=== PATIENT | female | born 1940 | race Caucasian/White ===

== ENCOUNTER 2019-09-02 04:44 | Inpatient (IN) ==
[2019-09-02] MEDS ORDERED: SODIUM CHLORIDE 0.9% 1,000 ML IV STA (05:01)
[2019-09-02] MEDS ORDERED: ALUM/MAG/SIMETH/LIDO VISC 1:1 30 ML BOTTLE PO STA (05:18)
[2019-09-02 05:30] LABS: Basophils # 0.1 10*3/uL (0.0-0.2); Basophils % 0.4 % (0.0-0.8); Eosinophils # 0.1 10*3/uL (0.0-0.87); Eosinophils % 0.4 % (0.00-10.9); Hematocrit 37.6 VOL% (35.7-47.0); Hemoglobin 12.3 GM/DL (12.0-16.0); Immature Granulocytes % 0.5 %; Immature Granulocytes Absolute 0.06 #; Lymphocytes % 8.9 % (21.3-54.2); Mean Corpuscular HGB Conc 32.7 GM/DL (32-36); Mean Corpuscular Volume 85.3 FL (87-102); Mean Platelet Volume 11.3 FL (9.6-12.0); Monocytes % 4.2 % (1.7-12.7); Neutrophils % 85.6 % (38.7-73.9); Platelet Count 222 T/CUMM (130-400); Red Blood Count 4.41 MC/CUMM (3.8-5.5); Red Cell Distribution Width 12.7 % (9.3-17.3); White Blood Count 11.5 T/CUMM (4-12)
[2019-09-02] MEDS: ONDANSETRON 4 MG/2 ML VIAL IV PRN ×2 (05:40→20:36)
[2019-09-02 05:47] LABS: Bilirubin,Total 0.4 MG/DL (0.2-1.0); Calcium 9.5 MG/DL (8.5-10.1); Total Protein 7.3 G/DL (6.4-8.3)
[2019-09-02 06:17] LABS: Amorphous Crystals,Urine Occasional /HPF (Few); Apearance,Urine Slightly Hazy (Clear); Bilirubin,Urine Negative (Negative); Blood, Urine Negative (Negative); Glucose,Urine (UA) Negative (Negative); Ketones,Urine Negative (Negative); Nitrite,Urine Negative (Negative); Protein,Urine 30 MG/DL; RBC,Urine 2 /HPF (0-4); Squamous Epithelial Cell,Urine Occasional /HPF (0-10); Urine Color Yellow (Yellow); Urine Specific Gravity 1.013 (1.001-1.035); Urine Urobilinogen < 2.0 EU/DL (0.2-1.0)
[2019-09-02] MEDS ORDERED: METOCLOPRAMIDE 10 MG/2 ML VIAL IV STA (07:05)
[2019-09-02] MEDS ORDERED: ONDANSETRON 4 MG/2 ML VIAL IV STA (07:05)
[2019-09-02] MEDS ORDERED: MAGNESIUM SULF RIDER 4 GM in PREMIX 1 EACH IV PRN (12:49)
[2019-09-02] MEDS ORDERED: MAGNESIUM SULF RIDER 2 GM in PREMIX 1 EACH IV PRN (12:49)
[2019-09-02] MEDS ORDERED: hydrALAZINE 20 MG/1 ML VIAL IV PRN (12:50)
[2019-09-02] MEDS: SODIUM CHLORIDE 0.9% 1,000 ML IV SCH (14:13)
[2019-09-02] MEDS: ENOXAPARIN 40 MG/0.4 ML SYRINGE SUBCUT SCH (14:14)
[2019-09-02] MEDS: AMPICILLIN/SULBACTAM 3,000 MG in SODIUM CHLORIDE 0.9% 100 ML IV SCH ×2 (14:14→20:36)
[2019-09-03] MEDS: SODIUM CHLORIDE 0.9% 1,000 ML IV SCH ×3 (01:28→22:16)
[2019-09-03] MEDS: AMPICILLIN/SULBACTAM 3,000 MG in SODIUM CHLORIDE 0.9% 100 ML IV SCH ×2 (02:37→08:07)
[2019-09-03] MEDS: ONDANSETRON 4 MG/2 ML VIAL IV PRN ×2 (06:20→14:23)
[2019-09-03 06:25] LABS: Basophils % 0.6 % (0.0-0.8); Eosinophils % 0.4 % (0.00-10.9); Hematocrit 31.8 VOL% (35.7-47.0); Hemoglobin 10.1 GM/DL (12.0-16.0); Immature Granulocytes % 0.3 %; Immature Granulocytes Absolute 0.02 #; Lymphocytes # 1.9 10*3/uL (1.4-4.0); Lymphocytes % 26.7 % (21.3-54.2); Mean Corpuscular HGB Conc 31.8 GM/DL (32-36); Mean Corpuscular Volume 87.8 FL (87-102); Mean Platelet Volume 11.3 FL (9.6-12.0); Platelet Count 208 T/CUMM (130-400); Red Blood Count 3.62 MC/CUMM (3.8-5.5); White Blood Count 6.9 T/CUMM (4-12)
[2019-09-03 06:43] LABS: Bilirubin,Total 0.5 MG/DL (0.2-1.0); Calcium 8.3 MG/DL (8.5-10.1); Osmolality,Calculated 276.5 MOS/KG (273-304); Total Protein 5.9 G/DL (6.4-8.3)
[2019-09-03 07:39] LABS: Sedimentation Rate-Westergren 40 MM/HR (0-30)
[2019-09-03] MEDS: PANTOPRAZOLE 40 MG VIAL IV SCH (08:08)
[2019-09-03] MEDS ORDERED: MELATONIN 3 MG TABLET PO PRN (10:59)
[2019-09-03] MEDS ORDERED: HydrOXYzine PAMOATE 25 MG CAPSULE PO PRN (10:59)
[2019-09-03] MEDS ORDERED: SENNA 8.6 MG TABLET PO PRN (10:59)
[2019-09-03] MEDS: POTASSIUM CHLORIDE RIDER 20 MEQ in PREMIX 1 EACH IV SCH ×2 (14:23→16:25)
[2019-09-03] MEDS: ENOXAPARIN 40 MG/0.4 ML SYRINGE SUBCUT SCH (14:23)
[2019-09-03] MEDS ORDERED: CETIRIZINE 10 MG TABLET PO SCH (21:00)
[2019-09-04] MEDS: SODIUM CHLORIDE 0.9% 1,000 ML IV SCH (03:11)
[2019-09-04 03:53] LABS: Basophils % 0.5 % (0.0-0.8); Eosinophils # 0.2 10*3/uL (0.0-0.87); Eosinophils % 3.1 % (0.00-10.9); Hematocrit 30.3 VOL% (35.7-47.0); Hemoglobin 9.6 GM/DL (12.0-16.0); Immature Granulocytes % 0.5 %; Immature Granulocytes Absolute 0.03 #; Lymphocytes # 1.9 10*3/uL (1.4-4.0); Lymphocytes % 32.1 % (21.3-54.2); Mean Corpuscular HGB Conc 31.7 GM/DL (32-36); Mean Corpuscular Volume 88.1 FL (87-102); Mean Platelet Volume 10.8 FL (9.6-12.0); Monocytes % 10.2 % (1.7-12.7); Neutrophils % 53.6 % (38.7-73.9); Platelet Count 186 T/CUMM (130-400); Red Blood Count 3.44 MC/CUMM (3.8-5.5); Red Cell Distribution Width 13.1 % (9.3-17.3); White Blood Count 6.1 T/CUMM (4-12)
[2019-09-04 04:30] LABS: Albumin 2.8 G/DL (3.4-5.0); Bilirubin,Total 0.4 MG/DL (0.2-1.0); Calcium 8.1 MG/DL (8.5-10.1); Total Protein 5.6 G/DL (6.4-8.3)
[2019-09-04 05:05] LABS: Sedimentation Rate-Westergren 25 MM/HR (0-30)
[2019-09-04] MEDS ORDERED: [UNRECOGNIZED DRUG - OTHER] INH SCH (09:00)
[2019-09-04] MEDS ORDERED: MULTIVITAMIN (CENTRUM) TABLET PO SCH (09:00)
[2019-09-04] MEDS ORDERED: CHOLECALCIFEROL 5,000 UNIT TABLET PO SCH (09:00)
[2019-09-04] MEDS ORDERED: atenoloL 25 MG TABLET PO SCH (09:00)
[2019-09-04] MEDS ORDERED: ASPIRIN EC 81 MG TABLET PO SCH (09:00)
[2019-09-04] MEDS ORDERED: CYANOCOBALAMIN 500 MCG TABLET PO SCH (09:00)
[2019-09-04] MEDS ORDERED: FUROSEMIDE 20 MG/2 ML VIAL IV ONE (10:13)
[2019-09-04] MEDS: PANTOPRAZOLE 40 MG VIAL IV SCH (10:25)
[2019-09-04] MEDS ORDERED: NAPROXEN 250 MG TABLET PO PRN (13:14)
[2019-09-04] MEDS: ENOXAPARIN 40 MG/0.4 ML SYRINGE SUBCUT SCH (14:36)
[2019-09-04 14:47] VITALS: BP 117/60
== END 2019-09-04 16:10 | disposition home health service (06) | DRG 392 ==
LOC: EDBD → EDUNIT# → N.ED 04:44 → SUATTDRO 11:11 → N.EDINP 11:11 → N.2W 12:01
PROVIDERS: ADMIT Internal Medicine; ATTEND Internal Medicine

== ENCOUNTER 2020-06-16 17:10 | Inpatient (IN) ==
[2020-06-16] MEDS ORDERED: ONDANSETRON 4 MG/2 ML VIAL ONE (18:01)
[2020-06-16] MEDS ORDERED: ONDANSETRON 4 MG/2 ML VIAL IV STA (18:05)
[2020-06-16] MEDS ORDERED: SODIUM CHLORIDE 0.9% 1,000 ML IV STA (18:12)
[2020-06-16 18:20] LABS: Basophils # 0.1 10*3/uL (0.0-0.2); Basophils % 0.9 % (0.0-0.8); Eosinophils # 0.1 10*3/uL (0.0-0.87); Eosinophils % 0.8 % (0.00-10.9); Hematocrit 39.1 VOL% (35.7-47.0); Hemoglobin 12.3 GM/DL (12.0-16.0); Immature Granulocytes % 0.5 %; Immature Granulocytes Absolute 0.06 #; Lymphocytes # 1.2 10*3/uL (1.4-4.0); Mean Corpuscular HGB Conc 31.5 GM/DL (32-36); Mean Corpuscular Volume 92.4 FL (87-102); Mean Platelet Volume 10.9 FL (9.6-12.0); Monocytes % 7.6 % (1.7-12.7); Neutrophils % 79.2 % (38.7-73.9); Platelet Count 301 T/CUMM (130-400); Red Blood Count 4.23 MC/CUMM (3.8-5.5); Red Cell Distribution Width 13.8 % (9.3-17.3); White Blood Count 11.3 T/CUMM (4-12)
[2020-06-16 18:28] LABS: INR 1.2
[2020-06-16 18:29] LABS: Albumin 3.7 G/DL (3.4-5.0); Bilirubin,Total 0.6 MG/DL (0.2-1.0); Calcium 9.4 MG/DL (8.5-10.1); Osmolality,Calculated 277.4 MOS/KG (273-304); Potassium 4.1 MMOL/L (3.5-5.1); Total Protein 7.4 G/DL (6.4-8.3)
[2020-06-16 18:34] LABS: ABG Base Excess -0.8 MMOL/L (-2.5-2.5); ABG HCO3 23.6 MMOL/L (20-26); ABG PCO2 38.7 MM HG (35-48); ABG PH 7.397 (7.35-7.45); ABG PO2 60.2 MM HG (80-95); ABG TCO2 21.1 MMOL/L (23-27); Allen Test Positive; Pt O2 Delivery Device Room Air
[2020-06-16] MEDS ORDERED: methylPREDNISolone SOD SUC 125 MG/2 ML VIAL IV STA (19:03)
[2020-06-16 19:17] LABS: Bilirubin,Urine Negative (Negative); Blood, Urine Negative (Negative); Glucose,Urine (UA) Negative (Negative); Hyaline Casts,Urine 2 /LPF (0-3); Ketones,Urine 5 mg/dL (Negative); Mucus,Urine Occasional /LPF (Occasional); Nitrite,Urine Negative (Negative); Protein,Urine 100 MG/DL; Squamous Epithelial Cell,Urine Occasional /HPF (0-10); Urine Appearance CLEAR (Clear); Urine Color Yellow (Yellow); Urine Specific Gravity 1.024 (1.001-1.035); Urine Urobilinogen < 2.0 EU/DL (0.2-1.0); WBC,Urine 1 /HPF (0-6)
[2020-06-16 19:29] LABS: Ferritin 91.3 ng/ml (8-252)
[2020-06-16] MEDS ORDERED: PROMETHAZINE INJ 12.5 MG in SODIUM CHLORIDE 0.9% 50 ML IV STA (19:30)
[2020-06-16] MEDS ORDERED: FUROSEMIDE 40 MG/4 ML VIAL IV STA ×2 (19:51→22:15)
[2020-06-16] MEDS ORDERED: AZITHROMYCIN INJ 500 MG in SODIUM CHLORIDE 0.9% 250 ML IV STA (20:02)
[2020-06-16] MEDS ORDERED: ACETAMINOPHEN 325 MG TABLET PO PRN (20:12)
[2020-06-16] MEDS ORDERED: GLUCAGON 1 MG VIAL IM PRN (20:12)
[2020-06-16] MEDS ORDERED: SIMETHICONE CHEW 125 MG TABLET PO PRN (20:12)
[2020-06-16] MEDS ORDERED: DEXTROSE 50% 25 GM/50 ML VIAL IV PRN (20:12)
[2020-06-16] MEDS ORDERED: ZALEPLON 5 MG CAPSULE PO PRN (20:12)
[2020-06-16] MEDS ORDERED: hydrALAZINE 20 MG/1 ML VIAL IV PRN (20:12)
[2020-06-16] MEDS ORDERED: diphenhydrAMINE CAP 25 MG CAPSULE PO PRN (20:12)
[2020-06-16] MEDS ORDERED: NICOTINE 21 MG/24 HR PATCH TRANSDERM PRN (20:12)
[2020-06-16] MEDS ORDERED: ONDANSETRON 4 MG/2 ML VIAL IV PRN (20:12)
[2020-06-16] MEDS ORDERED: SENNA 8.6 MG TABLET PO PRN (20:16)
[2020-06-16] MEDS ORDERED: METOCLOPRAMIDE 10 MG/2 ML VIAL IV PRN (20:33)
[2020-06-16] MEDS ORDERED: ALBUTEROL INHALER 18 GM INH PRN (20:38)
[2020-06-16] MEDS: ENOXAPARIN 40 MG/0.4 ML SYRINGE SUBCUT SCH (21:22)
[2020-06-16] MEDS: CETIRIZINE 10 MG TABLET PO SCH (21:24)
[2020-06-16] MEDS: LEVOFLOXACIN INJ 750 MG in PREMIX 1 EACH IV SCH (22:51)
[2020-06-16] MEDS ORDERED: ALBUTEROL INHALER 18 GM INH SCH (23:00)
[2020-06-16] MEDS ORDERED: ALBUTEROL 1.25 MG/3 ML NEB RESP TX PRN (23:25)
[2020-06-17] MEDS: ALBUTEROL/IPRATROPIUM 3 ML NEB RESP TX SCH ×4 (00:54→19:08)
[2020-06-17] MEDS: PROMETHAZINE INJ 25 MG in SODIUM CHLORIDE 0.9% 50 ML IV PRN ×2 (04:40→16:44)
[2020-06-17 06:09] LABS: Basophils % 0.1 % (0.0-0.8); Hematocrit 35.8 VOL% (35.7-47.0); Hemoglobin 11.6 GM/DL (12.0-16.0); Immature Granulocytes % 0.6 %; Immature Granulocytes Absolute 0.04 #; Lymphocytes # 0.4 10*3/uL (1.4-4.0); Lymphocytes % 6.4 % (21.3-54.2); Mean Corpuscular HGB Conc 32.4 GM/DL (32-36); Mean Corpuscular Volume 91.3 FL (87-102); Mean Platelet Volume 11.3 FL (9.6-12.0); Monocytes % 1.4 % (1.7-12.7); Neutrophils % 91.5 % (38.7-73.9); Platelet Count 240 T/CUMM (130-400); Red Blood Count 3.92 MC/CUMM (3.8-5.5); Red Cell Distribution Width 13.8 % (9.3-17.3); White Blood Count 6.9 T/CUMM (4-12)
[2020-06-17 06:38] LABS: Albumin 3.3 G/DL (3.4-5.0); Bilirubin,Total 0.9 MG/DL (0.2-1.0); Calcium 8.2 MG/DL (8.5-10.1); Osmolality,Calculated 280.8 MOS/KG (273-304); Potassium 3.4 MMOL/L (3.5-5.1); Total Protein 6.8 G/DL (6.4-8.3)
[2020-06-17 07:49] LABS: Anisocytosis 1+; Lymphocytes 8 % (20-55); Macrocytosis Slight; Nucleated Red Blood Cells 1 (0-5); Platelet Estimate Normal; Segmented Neutrophils 91 % (50-85); Total Cells Counted 100
[2020-06-17] MEDS ORDERED: Fluticasone Furoate-Vilanterol [Breo Ellipta] 200-25 mcg/dose INH SCH (09:00)
[2020-06-17] MEDS: FUROSEMIDE 40 MG/4 ML VIAL IV SCH ×2 (10:49→16:45)
[2020-06-17] MEDS: CITALOPRAM 40 MG TABLET PO SCH (10:49)
[2020-06-17] MEDS: MULTIVITAMIN (CENTRUM) TABLET PO SCH (10:50)
[2020-06-17] MEDS: ASPIRIN EC 81 MG TABLET PO SCH (10:50)
[2020-06-17] MEDS: CHOLECALCIFEROL 5,000 UNIT TABLET PO SCH (10:50)
[2020-06-17] MEDS: PANTOPRAZOLE 40 MG TABLET PO SCH (10:50)
[2020-06-17] MEDS: atenoloL 25 MG TABLET PO SCH (12:32)
[2020-06-17] MEDS ORDERED: CLORAZEPATE 3.75 MG TABLET PO PRN (13:29)
[2020-06-17] MEDS ORDERED: POTASSIUM CHLORIDE 20 MEQ TABLET PO ONE (13:31)
[2020-06-17] MEDS: methylPREDNISolone SOD SUC 40 MG/1 ML VIAL IV SCH (16:45)
[2020-06-17] MEDS: ENOXAPARIN 40 MG/0.4 ML SYRINGE SUBCUT SCH (20:13)
[2020-06-17] MEDS: CETIRIZINE 10 MG TABLET PO SCH (20:13)
[2020-06-17] MEDS: LEVOFLOXACIN INJ 750 MG in PREMIX 1 EACH IV SCH (20:13)
[2020-06-17] MEDS: guaiFENesin/DM ER 600-30 MG TABLET PO PRN (20:13)
[2020-06-18] MEDS: ALBUTEROL/IPRATROPIUM 3 ML NEB RESP TX SCH ×3 (00:09→12:09)
[2020-06-18] MEDS: MELATONIN 3 MG TABLET PO PRN ×2 (00:18→22:04)
[2020-06-18] MEDS: methylPREDNISolone SOD SUC 40 MG/1 ML VIAL IV SCH ×2 (02:31→14:23)
[2020-06-18 04:01] LABS: ABG Base Excess 2.7 MMOL/L (-2.5-2.5); ABG HCO3 26.8 MMOL/L (20-26); ABG PCO2 40.3 MM HG (35-48); ABG PH 7.436 (7.35-7.45); ABG TCO2 24.5 MMOL/L (23-27); Allen Test Positive
[2020-06-18 05:34] LABS: Basophils % 0.1 % (0.0-0.8); Hematocrit 31.8 VOL% (35.7-47.0); Hemoglobin 10.1 GM/DL (12.0-16.0); Immature Granulocytes % 0.6 %; Immature Granulocytes Absolute 0.06 #; Lymphocytes # 0.5 10*3/uL (1.4-4.0); Lymphocytes % 4.9 % (21.3-54.2); Mean Corpuscular HGB Conc 31.8 GM/DL (32-36); Mean Corpuscular Volume 92.4 FL (87-102); Mean Platelet Volume 10.5 FL (9.6-12.0); Monocytes % 2.5 % (1.7-12.7); Neutrophils % 91.9 % (38.7-73.9); Platelet Count 236 T/CUMM (130-400); Red Blood Count 3.44 MC/CUMM (3.8-5.5); Red Cell Distribution Width 14.1 % (9.3-17.3); White Blood Count 10.7 T/CUMM (4-12)
[2020-06-18 05:58] LABS: Hypochromasia 1+; Lymphocytes 7 % (20-55); Microcytosis 1+; Platelet Estimate Adequate; Segmented Neutrophils 90 % (50-85); Total Cells Counted 100
[2020-06-18 06:03] LABS: Albumin 3.2 G/DL (3.4-5.0); Bilirubin,Direct 0.14 MG/DL (0.0-0.20); Bilirubin,Indirect 0.4 MG/DL (0.0-1.0); Bilirubin,Total 0.5 MG/DL (0.2-1.0); Calcium 8.1 MG/DL (8.5-10.1); Ferritin 58.9 ng/ml (8-252); Osmolality,Calculated 279.2 MOS/KG (273-304); Potassium 3.7 MMOL/L (3.5-5.1); Thyroid Stimulating Hormone 0.57 uIU/ml (0.358-3.74); Total Protein 6.5 G/DL (6.4-8.3)
[2020-06-18] MEDS ORDERED: SODIUM CHLORIDE 0.9% 500 ML IV ONE (09:05)
[2020-06-18] MEDS ORDERED: MAGNESIUM SULF RIDER 2 GM in PREMIX 1 EACH IV ONE (09:06)
[2020-06-18] MEDS: ASPIRIN EC 81 MG TABLET PO SCH (09:20)
[2020-06-18] MEDS: MULTIVITAMIN (CENTRUM) TABLET PO SCH (09:20)
[2020-06-18] MEDS: CITALOPRAM 40 MG TABLET PO SCH (09:20)
[2020-06-18] MEDS: CHOLECALCIFEROL 5,000 UNIT TABLET PO SCH (09:20)
[2020-06-18] MEDS: PANTOPRAZOLE 40 MG TABLET PO SCH (09:20)
[2020-06-18] MEDS: FUROSEMIDE 40 MG/4 ML VIAL IV SCH (09:29)
[2020-06-18] MEDS: atenoloL 25 MG TABLET PO SCH (09:29)
[2020-06-18] MEDS ORDERED: IPRATROPIUM 500 MCG/2.5 ML NEB RESP TX PRN (13:15)
[2020-06-18] MEDS ORDERED: LEVALBUTEROL 1.25 MG/3 ML NEB RESP TX PRN (13:15)
[2020-06-18] MEDS: LEVOFLOXACIN INJ 750 MG in PREMIX 1 EACH IV SCH (22:03)
[2020-06-18] MEDS: ENOXAPARIN 40 MG/0.4 ML SYRINGE SUBCUT SCH (22:04)
[2020-06-18] MEDS: CETIRIZINE 10 MG TABLET PO SCH (22:04)
[2020-06-19] MEDS: guaiFENesin/DM ER 600-30 MG TABLET PO PRN (00:42)
[2020-06-19] MEDS: methylPREDNISolone SOD SUC 40 MG/1 ML VIAL IV SCH (04:18)
[2020-06-19 05:36] LABS: Basophils % 0.1 % (0.0-0.8); Hematocrit 35.4 VOL% (35.7-47.0); Hemoglobin 11.2 GM/DL (12.0-16.0); Immature Granulocytes % 0.7 %; Immature Granulocytes Absolute 0.09 #; Lymphocytes # 0.9 10*3/uL (1.4-4.0); Lymphocytes % 6.9 % (21.3-54.2); Mean Corpuscular HGB Conc 31.6 GM/DL (32-36); Mean Corpuscular Volume 92.4 FL (87-102); Monocytes % 5.8 % (1.7-12.7); Neutrophils % 86.5 % (38.7-73.9); Platelet Count 250 T/CUMM (130-400); Red Blood Count 3.83 MC/CUMM (3.8-5.5); Red Cell Distribution Width 14.2 % (9.3-17.3)
[2020-06-19 05:49] LABS: Calcium 8.7 MG/DL (8.5-10.1); Osmolality,Calculated 275.2 MOS/KG (273-304); Potassium 4.6 MMOL/L (3.5-5.1)
[2020-06-19] MEDS: MULTIVITAMIN (CENTRUM) TABLET PO SCH (09:06)
[2020-06-19] MEDS: CHOLECALCIFEROL 5,000 UNIT TABLET PO SCH (09:06)
[2020-06-19] MEDS: PANTOPRAZOLE 40 MG TABLET PO SCH (09:06)
[2020-06-19] MEDS: ASPIRIN EC 81 MG TABLET PO SCH (09:06)
[2020-06-19] MEDS: CITALOPRAM 40 MG TABLET PO SCH (09:06)
[2020-06-19] MEDS: DOCUSATE SODIUM 100 MG CAPSULE PO PRN (12:12)
[2020-06-19] MEDS: LEVOFLOXACIN INJ 750 MG in PREMIX 1 EACH IV SCH (22:21)
[2020-06-19] MEDS: MELATONIN 3 MG TABLET PO PRN (23:20)
[2020-06-19] MEDS: CETIRIZINE 10 MG TABLET PO SCH (23:21)
[2020-06-19] MEDS: PRIMIDONE 50 MG TABLET PO SCH (23:21)
[2020-06-19] MEDS: ENOXAPARIN 40 MG/0.4 ML SYRINGE SUBCUT SCH (23:22)
[2020-06-20] MEDS: ASPIRIN EC 81 MG TABLET PO SCH (08:30)
[2020-06-20] MEDS: CITALOPRAM 40 MG TABLET PO SCH (08:30)
[2020-06-20] MEDS: predniSONE 20 MG TABLET PO SCH (08:30)
[2020-06-20] MEDS: PANTOPRAZOLE 40 MG TABLET PO SCH (08:30)
[2020-06-20] MEDS: PRIMIDONE 50 MG TABLET PO SCH ×2 (08:30→20:42)
[2020-06-20] MEDS: DOCUSATE SODIUM 100 MG CAPSULE PO PRN (08:30)
[2020-06-20] MEDS: MULTIVITAMIN (CENTRUM) TABLET PO SCH (08:30)
[2020-06-20] MEDS: CHOLECALCIFEROL 5,000 UNIT TABLET PO SCH (10:10)
[2020-06-20] MEDS: LEVOFLOXACIN INJ 750 MG in PREMIX 1 EACH IV SCH (20:42)
[2020-06-20] MEDS: ENOXAPARIN 40 MG/0.4 ML SYRINGE SUBCUT SCH (20:42)
[2020-06-20] MEDS: CETIRIZINE 10 MG TABLET PO SCH (20:42)
[2020-06-20] MEDS: MELATONIN 3 MG TABLET PO PRN (20:44)
[2020-06-21 06:23] LABS: Eosinophils # 0.1 10*3/uL (0.0-0.87); Eosinophils % 0.6 % (0.00-10.9); Hematocrit 36.7 VOL% (35.7-47.0); Hemoglobin 11.8 GM/DL (12.0-16.0); Immature Granulocytes % 0.5 %; Immature Granulocytes Absolute 0.05 #; Lymphocytes # 3.1 10*3/uL (1.4-4.0); Lymphocytes % 30.4 % (21.3-54.2); Mean Corpuscular HGB Conc 32.2 GM/DL (32-36); Mean Corpuscular Volume 90.6 FL (87-102); Mean Platelet Volume 11.1 FL (9.6-12.0); Monocytes % 9.1 % (1.7-12.7); Neutrophils % 59.4 % (38.7-73.9); Platelet Count 215 T/CUMM (130-400); Red Blood Count 4.05 MC/CUMM (3.8-5.5); Red Cell Distribution Width 13.4 % (9.3-17.3); White Blood Count 10.3 T/CUMM (4-12)
[2020-06-21 07:06] LABS: Calcium 8.3 MG/DL (8.5-10.1); Osmolality,Calculated 266.5 MOS/KG (273-304); Potassium 3.9 MMOL/L (3.5-5.1)
[2020-06-21] MEDS: ASPIRIN EC 81 MG TABLET PO SCH (08:54)
[2020-06-21] MEDS: PANTOPRAZOLE 40 MG TABLET PO SCH (08:54)
[2020-06-21] MEDS: predniSONE 20 MG TABLET PO SCH (08:54)
[2020-06-21] MEDS: CHOLECALCIFEROL 5,000 UNIT TABLET PO SCH (08:54)
[2020-06-21] MEDS: MULTIVITAMIN (CENTRUM) TABLET PO SCH (08:54)
[2020-06-21] MEDS: CITALOPRAM 40 MG TABLET PO SCH (08:54)
[2020-06-21] MEDS: PRIMIDONE 50 MG TABLET PO SCH ×2 (11:31→21:11)
[2020-06-21] MEDS ORDERED: TUBERCULIN SKIN TEST 0.1 ML SYRINGE INTRADERM ONE (15:00)
[2020-06-21] MEDS ORDERED: LEVOFLOXACIN 750 MG TABLET PO SCH (21:00)
[2020-06-21] MEDS: CETIRIZINE 10 MG TABLET PO SCH (21:12)
[2020-06-21] MEDS: MELATONIN 3 MG TABLET PO PRN (21:15)
[2020-06-21] MEDS: ENOXAPARIN 40 MG/0.4 ML SYRINGE SUBCUT SCH (21:16)
[2020-06-22 06:49] LABS: Basophils % 0.1 % (0.0-0.8); Eosinophils # 0.1 10*3/uL (0.0-0.87); Eosinophils % 1.3 % (0.00-10.9); Hematocrit 39.9 VOL% (35.7-47.0); Hemoglobin 13.4 GM/DL (12.0-16.0); Immature Granulocytes % 0.5 %; Immature Granulocytes Absolute 0.05 #; Lymphocytes # 2.7 10*3/uL (1.4-4.0); Mean Corpuscular HGB Conc 33.6 GM/DL (32-36); Mean Corpuscular Volume 87.9 FL (87-102); Mean Platelet Volume 10.7 FL (9.6-12.0); Monocytes % 8.2 % (1.7-12.7); Neutrophils % 62.9 % (38.7-73.9); Platelet Count 241 T/CUMM (130-400); Red Blood Count 4.54 MC/CUMM (3.8-5.5); Red Cell Distribution Width 13.3 % (9.3-17.3); White Blood Count 9.9 T/CUMM (4-12)
[2020-06-22 07:06] LABS: Osmolality,Calculated 270.1 MOS/KG (273-304); Potassium 3.8 MMOL/L (3.5-5.1)
[2020-06-22] MEDS: CHOLECALCIFEROL 5,000 UNIT TABLET PO SCH (10:03)
[2020-06-22] MEDS: MULTIVITAMIN (CENTRUM) TABLET PO SCH (10:03)
[2020-06-22] MEDS: ASPIRIN EC 81 MG TABLET PO SCH (10:03)
[2020-06-22] MEDS: PANTOPRAZOLE 40 MG TABLET PO SCH (10:03)
[2020-06-22] MEDS: PRIMIDONE 50 MG TABLET PO SCH (10:04)
[2020-06-22] MEDS: predniSONE 20 MG TABLET PO SCH (10:04)
[2020-06-22 12:09] VITALS: BP 126/66
== END 2020-06-22 13:53 | disposition swing bed (61) | DRG 291 ==
LOC: N.ED 17:10 → SUATTDRO 20:12 → N.EDINP 20:12 → N.5E 23:22
PROVIDERS: ADMIT Internal Medicine; ATTEND Emergency Medicine

== ENCOUNTER 2020-07-10 15:04 | Inpatient (IN) ==
[2020-07-10] MEDS ORDERED: SODIUM CHLORIDE 0.9% 1,000 ML IV STA (16:28)
[2020-07-10 16:52] LABS: Bacteria,Urine Few /HPF (Few); Bilirubin,Urine Negative (Negative); Blood, Urine Negative (Negative); Glucose,Urine (UA) Negative (Negative); Granular Casts,Urine 5 /LPF (0-1); Hyaline Casts,Urine 10 /LPF (0-3); Ketones,Urine Negative (Negative); Nitrite,Urine Negative (Negative); Protein,Urine 100 MG/DL; Squamous Epithelial Cell,Urine Occasional /HPF (0-10); Urine Appearance CLOUDY (Clear); Urine Color Amber (Yellow); Urine Specific Gravity 1.016 (1.001-1.035); WBC,Urine 4 /HPF (0-6)
[2020-07-10 16:58] LABS: Albumin 3.8 G/DL (3.4-5.0); Bilirubin,Total 3.6 MG/DL (0.2-1.0); Calcium 8.4 MG/DL (8.5-10.1); Osmolality,Calculated 293.1 MOS/KG (273-304); Potassium 4.9 MMOL/L (3.5-5.1); Total Protein 6.8 G/DL (5.0-7.5)
[2020-07-10 16:59] LABS: Lactic Acid 5.9 MMOL/L (0.4-2.0)
[2020-07-10] MEDS ORDERED: LEVOFLOXACIN INJ 750 MG in PREMIX 1 EACH IV STA (17:11)
[2020-07-10 17:13] LABS: Basophils % 0.1 % (0.0-0.8); Hematocrit 37.1 VOL% (35.7-47.0); Immature Granulocytes % 1.1 %; Immature Granulocytes Absolute 0.19 #; Lymphocytes # 1.3 10*3/uL (1.4-4.0); Lymphocytes % 7.3 % (21.3-54.2); Mean Corpuscular HGB Conc 32.3 GM/DL (32-36); Mean Corpuscular Volume 90.9 FL (87-102); Mean Platelet Volume 12.6 FL (9.6-12.0); Monocytes % 8.5 % (1.7-12.7); NRBC # 0.05 10*3/uL; Platelet Count 66 T/CUMM (130-400); Red Blood Count 4.08 MC/CUMM (3.8-5.5); Red Cell Distribution Width 14.2 % (9.3-17.3); White Blood Count 17.6 T/CUMM (4-12)
[2020-07-10 17:36] LABS: Barbiturates Screen,Urine Negative (Negative); Benzodiazepines Screen,Urine Negative (Negative); Cannabinoid Screen,Urine Negative (Negative); Opiate Screen,Urine Negative (Negative); Phencyclidine Screen,Urine Negative (Negative)
[2020-07-10] MEDS ORDERED: ALUMINUM/MAGNES/SIMETH MAX STR 30 ML UDCUP PO PRN (18:05)
[2020-07-10] MEDS ORDERED: ACETAMINOPHEN 325 MG TABLET PO PRN (18:05)
[2020-07-10] MEDS ORDERED: NICOTINE 21 MG/24 HR PATCH TRANSDERM PRN (18:05)
[2020-07-10] MEDS ORDERED: DEXTROSE 50% 25 GM/50 ML VIAL IV PRN (18:05)
[2020-07-10] MEDS ORDERED: BISACODYL 5 MG TABLET PO PRN (18:05)
[2020-07-10] MEDS ORDERED: ONDANSETRON 4 MG/2 ML VIAL IV PRN (18:05)
[2020-07-10] MEDS ORDERED: ALBUTEROL 2.5 MG/3 ML NEB RESP TX PRN (18:05)
[2020-07-10] MEDS ORDERED: diphenhydrAMINE CAP 25 MG CAPSULE PO PRN (18:05)
[2020-07-10] MEDS ORDERED: guaiFENesin/DM ER 600-30 MG TABLET PO PRN (18:05)
[2020-07-10] MEDS ORDERED: hydrALAZINE 20 MG/1 ML VIAL IV PRN (18:05)
[2020-07-10] MEDS ORDERED: GLUCAGON 1 MG VIAL IM PRN (18:05)
[2020-07-10] MEDS ORDERED: ZALEPLON 5 MG CAPSULE PO PRN (18:05)
[2020-07-10] MEDS ORDERED: MORPHINE 4 MG/1 ML VIAL IV PRN (18:05)
[2020-07-10 18:35] LABS: Hepatitis B Core IgM Quant 0.12 Index; Hepatitis B Surface Ag Quant < 0.10 Index; Hepatitis B Surface Ag Result Non-Reactive (NonReactive); Hepatitis C Virus Ab Quant 0.14 Index; Hepatitis C Virus Ab Result Non-Reactive (NonReactive)
[2020-07-10] MEDS ORDERED: FUROSEMIDE 40 MG/4 ML VIAL IV ONE (19:00)
[2020-07-10 19:33] LABS: Albumin 3.9 G/DL (3.4-5.0); Bilirubin,Direct 2.37 MG/DL (0.0-0.20); Bilirubin,Indirect 1.3 MG/DL (0.0-1.0); Bilirubin,Total 3.7 MG/DL (0.2-1.0); Total Protein 6.9 G/DL (5.0-7.5)
[2020-07-10] MEDS: LACTULOSE 20 GM/30 ML UDCUP PO SCH (23:00)
[2020-07-10] MEDS: HEPARIN 5,000 UNIT/1 ML VIAL SUBCUT SCH (23:01)
[2020-07-10] MEDS: metroNIDAZOLE INJ 500 MG in PREMIX 1 EACH IV SCH (23:05)
[2020-07-11] MEDS: metroNIDAZOLE INJ 500 MG in PREMIX 1 EACH IV SCH ×2 (02:55→10:04)
[2020-07-11] MEDS: LACTULOSE 20 GM/30 ML UDCUP PO SCH ×4 (03:01→18:24)
[2020-07-11 03:20] LABS: Basophils % 0.1 % (0.0-0.8); Hematocrit 39.4 VOL% (35.7-47.0); Hemoglobin 12.9 GM/DL (12.0-16.0); Immature Granulocytes Absolute 0.15 #; Lymphocytes % 6.6 % (21.3-54.2); Mean Corpuscular HGB Conc 32.7 GM/DL (32-36); Mean Corpuscular Volume 89.1 FL (87-102); Mean Platelet Volume 11.9 FL (9.6-12.0); Monocytes % 7.9 % (1.7-12.7); NRBC # 0.04 10*3/uL; Neutrophils % 84.4 % (38.7-73.9); Red Blood Count 4.42 MC/CUMM (3.8-5.5); Red Cell Distribution Width 14.4 % (9.3-17.3); White Blood Count 14.8 T/CUMM (4-12)
[2020-07-11 03:22] LABS: Platelet Count 83 T/CUMM (130-400)
[2020-07-11 03:32] LABS: Calcium 8.3 MG/DL (8.5-10.1); Osmolality,Calculated 301.4 MOS/KG (273-304); Potassium 3.2 MMOL/L (3.5-5.1)
[2020-07-11 03:50] LABS: Albumin 3.6 G/DL (3.4-5.0); Bilirubin,Direct 1.75 MG/DL (0.0-0.20); Bilirubin,Indirect 1.8 MG/DL (0.0-1.0); Bilirubin,Total 3.5 MG/DL (0.2-1.0); Total Protein 6.5 G/DL (5.0-7.5)
[2020-07-11 04:02] LABS: Hypochromasia 2+; Platelet Estimate Decreased
[2020-07-11 04:03] LABS: Polychromasia 1+
[2020-07-11] MEDS: HEPARIN 5,000 UNIT/1 ML VIAL SUBCUT SCH ×2 (06:15→18:23)
[2020-07-11] MEDS: PANTOPRAZOLE 40 MG TABLET PO SCH ×2 (08:56→09:59)
[2020-07-11] MEDS: FUROSEMIDE 40 MG/4 ML VIAL IV SCH ×2 (08:56→16:30)
[2020-07-11] MEDS: cefTRIAXone 2,000 MG in SYRINGE 1 EACH IV SCH (11:26)
[2020-07-11] MEDS ORDERED: POTASSIUM CHLORIDE 20 MEQ TABLET PO ONE (15:00)
[2020-07-11] MEDS: carvediloL 3.125 MG TABLET PO SCH (17:11)
[2020-07-12] MEDS: LACTULOSE 20 GM/30 ML UDCUP PO SCH ×5 (00:08→23:56)
[2020-07-12 05:55] LABS: Basophils % 0.1 % (0.0-0.8); Hematocrit 46.1 VOL% (35.7-47.0); Hemoglobin 14.8 GM/DL (12.0-16.0); Immature Granulocytes % 0.7 %; Immature Granulocytes Absolute 0.08 #; Lymphocytes # 1.1 10*3/uL (1.4-4.0); Lymphocytes % 10.2 % (21.3-54.2); Mean Corpuscular HGB Conc 32.1 GM/DL (32-36); Mean Corpuscular Volume 90.4 FL (87-102); Mean Platelet Volume 11.4 FL (9.6-12.0); Monocytes % 10.5 % (1.7-12.7); Neutrophils % 78.5 % (38.7-73.9); Platelet Count 122 T/CUMM (130-400); Red Cell Distribution Width 14.5 % (9.3-17.3); White Blood Count 11.1 T/CUMM (4-12)
[2020-07-12 06:26] LABS: Calcium 8.8 MG/DL (8.5-10.1); Osmolality,Calculated 320.4 MOS/KG (273-304)
[2020-07-12 06:28] LABS: Potassium 2.5 MMOL/L (3.5-5.1)
[2020-07-12] MEDS: HEPARIN 5,000 UNIT/1 ML VIAL SUBCUT SCH ×2 (07:14→17:30)
[2020-07-12 07:29] LABS: Albumin 3.7 G/DL (3.4-5.0); Bilirubin,Direct 1.46 MG/DL (0.0-0.20); Bilirubin,Indirect 1.6 MG/DL (0.0-1.0); Bilirubin,Total 3.1 MG/DL (0.2-1.0); Total Protein 6.9 G/DL (5.0-7.5)
[2020-07-12] MEDS: POTASSIUM CHLORIDE RIDER 10 MEQ in PREMIX 1 EACH IV PRN (08:28)
[2020-07-12] MEDS: FUROSEMIDE 40 MG/4 ML VIAL IV SCH ×2 (08:28→17:26)
[2020-07-12] MEDS: carvediloL 3.125 MG TABLET PO SCH ×2 (08:46→17:27)
[2020-07-12] MEDS: PANTOPRAZOLE 40 MG TABLET PO SCH (08:47)
[2020-07-12] MEDS: cefTRIAXone 2,000 MG in SYRINGE 1 EACH IV SCH (08:48)
[2020-07-12] MEDS ORDERED: POTASSIUM CHLORIDE INJ 50 MEQ in SODIUM CHLORIDE 0.9% 500 ML IV ONE (11:00)
[2020-07-12] MEDS: amLODIPine 2.5 MG TABLET PO SCH (13:45)
[2020-07-12] MEDS ORDERED: KETOROLAC 15 MG/1 ML VIAL IV ONE (20:24)
[2020-07-12 20:42] LABS: ABG Base Excess 10.2 MMOL/L (-2.5-2.5); ABG HCO3 33.9 MMOL/L (20-26); ABG Oxygen Saturation 97.5 % (95-100); ABG PCO2 40.9 MM HG (35-48); ABG PH 7.528 (7.35-7.45); ABG PO2 90.1 MM HG (80-95); ABG TCO2 27.6 MMOL/L (23-27); Allen Test Positive
[2020-07-12] MEDS ORDERED: LEVOFLOXACIN INJ 750 MG in PREMIX 1 EACH IV SCH (21:00)
[2020-07-13 00:05] LABS: Bacteria,Urine Occasional /HPF (Few); Bilirubin,Urine Negative (Negative); Blood, Urine Moderate mg/dL (Negative); Glucose,Urine (UA) Negative (Negative); Hyaline Casts,Urine 24 /LPF (0-3); Ketones,Urine Negative (Negative); Mucus,Urine Occasional /LPF (Occasional); Nitrite,Urine Negative (Negative); Protein,Urine 100 MG/DL; RBC,Urine <1 /HPF (0-4); Renal Epithelial Cells,Urine Occasional /HPF (<1); Squamous Epithelial Cell,Urine Occasional /HPF (0-10); Urine Appearance CLEAR (Clear); Urine Color Yellow (Yellow); Urine Specific Gravity 1.013 (1.001-1.035); Urine Urobilinogen < 2.0 EU/DL (0.2-1.0); WBC,Urine 1 /HPF (0-6)
[2020-07-13] MEDS: HEPARIN 5,000 UNIT/1 ML VIAL SUBCUT SCH ×2 (05:44→18:04)
[2020-07-13] MEDS: LACTULOSE 20 GM/30 ML UDCUP PO SCH (05:44)
[2020-07-13 06:32] LABS: Osmolality,Calculated 335.7 MOS/KG (273-304); Potassium 3.4 MMOL/L (3.5-5.1)
[2020-07-13 06:40] LABS: Basophils % 0.1 % (0.0-0.8); Eosinophils % 0.1 % (0.00-10.9); Hematocrit 56.3 VOL% (35.7-47.0); Immature Granulocytes % 0.6 %; Immature Granulocytes Absolute 0.07 #; Lymphocytes # 2.8 10*3/uL (1.4-4.0); Lymphocytes % 25.6 % (21.3-54.2); Mean Corpuscular HGB Conc 31.1 GM/DL (32-36); Mean Corpuscular Volume 93.5 FL (87-102); Mean Platelet Volume 11.7 FL (9.6-12.0); Monocytes % 17.9 % (1.7-12.7); NRBC # 0.02 10*3/uL; Neutrophils % 55.7 % (38.7-73.9); Platelet Count 138 T/CUMM (130-400); Red Blood Count 6.02 MC/CUMM (3.8-5.5); Red Cell Distribution Width 16.3 % (9.3-17.3); White Blood Count 10.8 T/CUMM (4-12)
[2020-07-13 06:42] LABS: Hemoglobin 17.5 GM/DL (12.0-16.0)
[2020-07-13 06:49] LABS: Albumin 3.7 G/DL (3.4-5.0); Bilirubin,Direct 1.65 MG/DL (0.0-0.20); Bilirubin,Indirect 2.1 MG/DL (0.0-1.0); Bilirubin,Total 3.7 MG/DL (0.2-1.0); Total Protein 7.1 G/DL (5.0-7.5)
[2020-07-13 07:51] LABS: Lymphocytes 29 % (20-55); Nucleated Red Blood Cells 1 (0-5); Segmented Neutrophils 63 % (50-85); Total Cells Counted 100
[2020-07-13 07:52] LABS: Hypochromasia 1+; Microcytosis 1+
[2020-07-13 07:53] LABS: Platelet Estimate Decreased
[2020-07-13] MEDS: cefTRIAXone 2,000 MG in SYRINGE 1 EACH IV SCH (09:05)
[2020-07-13] MEDS: FUROSEMIDE 40 MG/4 ML VIAL IV SCH (09:06)
[2020-07-13] MEDS: amLODIPine 2.5 MG TABLET PO SCH (09:07)
[2020-07-13] MEDS: carvediloL 3.125 MG TABLET PO SCH (09:07)
[2020-07-13] MEDS: PANTOPRAZOLE 40 MG TABLET PO SCH (09:08)
[2020-07-13] MEDS: DEXTROSE 5% 1,000 ML IV SCH (09:09)
[2020-07-13 09:52] LABS: Folate > 24.0 NG/ML (5.38-24.0); Vitamin B12 > 2000 PG/ML (211-911)
[2020-07-13] MEDS ORDERED: SODIUM CHLORIDE 0.9% 1,000 ML IV SCH (10:30)
[2020-07-13] MEDS: LACTULOSE 320 GM/480 ML BOTTLE RECTAL SCH ×2 (11:09→21:25)
[2020-07-13] MEDS: METOPROLOL TARTRATE 5 MG/5 ML VIAL IV SCH ×3 (11:09→21:24)
[2020-07-13] MEDS: POTASSIUM CHLORIDE RIDER 10 MEQ in PREMIX 1 EACH IV PRN ×3 (11:12→18:04)
[2020-07-13] MEDS ORDERED: KETOROLAC 15 MG/1 ML VIAL IV ONE (20:31)
[2020-07-14] MEDS: METOPROLOL TARTRATE 5 MG/5 ML VIAL IV SCH ×4 (04:20→20:53)
[2020-07-14] MEDS: DEXTROSE 5% 1,000 ML IV SCH (05:28)
[2020-07-14] MEDS: HEPARIN 5,000 UNIT/1 ML VIAL SUBCUT SCH ×2 (05:31→17:37)
[2020-07-14 06:59] LABS: Basophils % 0.2 % (0.0-0.8); Eosinophils # 0.1 10*3/uL (0.0-0.87); Hemoglobin 16.8 GM/DL (12.0-16.0); Immature Granulocytes % 0.5 %; Immature Granulocytes Absolute 0.05 #; Lymphocytes # 3.1 10*3/uL (1.4-4.0); Lymphocytes % 30.3 % (21.3-54.2); Mean Corpuscular HGB Conc 30.5 GM/DL (32-36); Mean Corpuscular Volume 94.7 FL (87-102); Monocytes % 17.8 % (1.7-12.7); Neutrophils % 50.2 % (38.7-73.9); Platelet Count 113 T/CUMM (130-400); Red Blood Count 5.81 MC/CUMM (3.8-5.5); Red Cell Distribution Width 15.7 % (9.3-17.3); White Blood Count 10.1 T/CUMM (4-12)
[2020-07-14 07:07] LABS: Anisocytosis 1+; Eosinophils 1 % (0-10); Lymphocytes 30 % (20-55); Macrocytosis 1+; Platelet Estimate Adequate; Segmented Neutrophils 55 % (50-85); Total Cells Counted 100
[2020-07-14 07:15] LABS: Calcium 8.2 MG/DL (8.5-10.1); Osmolality,Calculated 351.7 MOS/KG (273-304); Potassium 3.7 MMOL/L (3.5-5.1)
[2020-07-14 07:21] LABS: Bilirubin,Direct 0.67 MG/DL (0.0-0.20); Bilirubin,Indirect 1.3 MG/DL (0.0-1.0); Total Protein 6.2 G/DL (5.0-7.5)
[2020-07-14] MEDS: cefTRIAXone 2,000 MG in SYRINGE 1 EACH IV SCH (09:20)
[2020-07-14] MEDS: PANTOPRAZOLE 40 MG TABLET PO SCH (09:21)
[2020-07-14] MEDS: CITALOPRAM 40 MG TABLET PO SCH (09:21)
[2020-07-14 10:04] LABS: Amorphous Crystals,Urine Few /HPF (Few); Bilirubin,Urine Negative (Negative); Blood, Urine Small mg/dL (Negative); Glucose,Urine (UA) Negative (Negative); Hyaline Casts,Urine 3 /LPF (0-3); Ketones,Urine Negative (Negative); Mucus,Urine Occasional /LPF (Occasional); Nitrite,Urine Negative (Negative); Protein,Urine 30 MG/DL; RBC,Urine 1 /HPF (0-4); Squamous Epithelial Cell,Urine Occasional /HPF (0-10); Urine Appearance Slightly Hazy (Clear); Urine Color Amber (Yellow); Urine Specific Gravity 1.023 (1.001-1.035); Urine Urobilinogen < 2.0 EU/DL (0.2-1.0); WBC,Urine <1 /HPF (0-6)
[2020-07-14] MEDS: LACTULOSE 320 GM/480 ML BOTTLE RECTAL SCH (12:56)
[2020-07-14] MEDS ORDERED: LACTULOSE 320 GM/480 ML BOTTLE RECTAL PRN (14:52)
[2020-07-14 15:40] LABS: Osmolality,Calculated 341.3 MOS/KG (273-304); Potassium 3.5 MMOL/L (3.5-5.1)
[2020-07-14] MEDS: LACTULOSE 20 GM/30 ML UDCUP PO SCH (20:53)
[2020-07-14] MEDS ORDERED: KETOROLAC 15 MG/1 ML VIAL IV ONE (23:08)
[2020-07-15] MEDS: METOPROLOL TARTRATE 5 MG/5 ML VIAL IV SCH ×4 (03:54→20:52)
[2020-07-15] MEDS: HEPARIN 5,000 UNIT/1 ML VIAL SUBCUT SCH ×2 (05:53→17:31)
[2020-07-15 06:53] LABS: Basophils % 0.3 % (0.0-0.8); Eosinophils # 0.5 10*3/uL (0.0-0.87); Eosinophils % 5.3 % (0.00-10.9); Hematocrit 53.2 VOL% (35.7-47.0); Hemoglobin 16.4 GM/DL (12.0-16.0); Immature Granulocytes % 0.6 %; Immature Granulocytes Absolute 0.06 #; Lymphocytes # 2.8 10*3/uL (1.4-4.0); Mean Corpuscular HGB Conc 30.8 GM/DL (32-36); Mean Corpuscular Volume 93.8 FL (87-102); Mean Platelet Volume 12.1 FL (9.6-12.0); Monocytes % 13.8 % (1.7-12.7); Red Blood Count 5.67 MC/CUMM (3.8-5.5); Red Cell Distribution Width 14.9 % (9.3-17.3); White Blood Count 10.3 T/CUMM (4-12)
[2020-07-15 06:57] LABS: Platelet Count 68 T/CUMM (130-400)
[2020-07-15 07:05] LABS: Calcium 8.6 MG/DL (8.5-10.1); Osmolality,Calculated 330.9 MOS/KG (273-304); Potassium 3.6 MMOL/L (3.5-5.1)
[2020-07-15 07:27] LABS: Bilirubin,Direct 0.64 MG/DL (0.0-0.20); Bilirubin,Indirect 1.2 MG/DL (0.0-1.0); Bilirubin,Total 1.8 MG/DL (0.2-1.0)
[2020-07-15] MEDS: CITALOPRAM 40 MG TABLET PO SCH (08:51)
[2020-07-15] MEDS: PANTOPRAZOLE 40 MG TABLET PO SCH (08:51)
[2020-07-15] MEDS: LACTULOSE 20 GM/30 ML UDCUP PO SCH ×2 (08:51→20:58)
[2020-07-15] MEDS: cefTRIAXone 2,000 MG in SYRINGE 1 EACH IV SCH (08:52)
[2020-07-15 09:15] LABS: Eosinophils 7 % (0-10); Lymphocytes 26 % (20-55); Platelet Estimate Decreased; Segmented Neutrophils 54 % (50-85); Total Cells Counted 100
[2020-07-15 09:16] LABS: Anisocytosis Slight; Macrocytosis 1+
[2020-07-15] MEDS: DEXTROSE 5% 1,000 ML IV SCH (15:06)
[2020-07-16] MEDS: METOPROLOL TARTRATE 5 MG/5 ML VIAL IV SCH ×2 (02:27→10:54)
[2020-07-16] MEDS: HEPARIN 5,000 UNIT/1 ML VIAL SUBCUT SCH ×2 (05:40→18:23)
[2020-07-16 06:55] LABS: Albumin 2.6 G/DL (3.4-5.0); Bilirubin,Direct 0.46 MG/DL (0.0-0.20); Bilirubin,Indirect 1.8 MG/DL (0.0-1.0); Bilirubin,Total 2.3 MG/DL (0.2-1.0); Calcium 8.2 MG/DL (8.5-10.1); Osmolality,Calculated 320.1 MOS/KG (273-304); Potassium 3.1 MMOL/L (3.5-5.1); Total Protein 5.4 G/DL (5.0-7.5)
[2020-07-16 07:11] LABS: Basophils % 0.1 % (0.0-0.8); Eosinophils # 0.7 10*3/uL (0.0-0.87); Eosinophils % 9.8 % (0.00-10.9); Hemoglobin 14.5 GM/DL (12.0-16.0); Immature Granulocytes % 0.6 %; Immature Granulocytes Absolute 0.04 #; Lymphocytes # 1.7 10*3/uL (1.4-4.0); Lymphocytes % 23.3 % (21.3-54.2); Mean Corpuscular HGB Conc 30.2 GM/DL (32-36); Mean Corpuscular Volume 94.5 FL (87-102); Mean Platelet Volume 11.8 FL (9.6-12.0); Monocytes % 13.7 % (1.7-12.7); Neutrophils % 52.5 % (38.7-73.9); Platelet Count 65 T/CUMM (130-400); Red Blood Count 5.08 MC/CUMM (3.8-5.5); Red Cell Distribution Width 14.6 % (9.3-17.3); White Blood Count 7.2 T/CUMM (4-12)
[2020-07-16 07:13] LABS: Hypochromasia 1+
[2020-07-16 07:14] LABS: Microcytosis Slight; Ovalocytes Slight; Platelet Estimate Decreased
[2020-07-16] MEDS: LACTULOSE 20 GM/30 ML UDCUP PO SCH (08:36)
[2020-07-16] MEDS: CITALOPRAM 40 MG TABLET PO SCH (08:36)
[2020-07-16] MEDS: PANTOPRAZOLE 40 MG TABLET PO SCH (08:36)
[2020-07-16] MEDS: cefTRIAXone 2,000 MG in SYRINGE 1 EACH IV SCH (08:39)
[2020-07-16 10:35] LABS: INR 1.4; PT Patient Result 14.3 SECS (9.8-11.9)
[2020-07-16] MEDS: POTASSIUM CHLORIDE 20 MEQ/15 ML UDCUP PO SCH ×2 (12:53→21:57)
[2020-07-16] MEDS ORDERED: LACTULOSE 20 GM/30 ML UDCUP PO PRN (15:25)
[2020-07-16] MEDS: carvediloL 6.25 MG TABLET PO SCH (16:40)
[2020-07-16] MEDS ORDERED: carvediloL 3.125 MG TABLET PO SCH (17:00)
[2020-07-16] MEDS ORDERED: ACETAMINOPHEN 325 MG TABLET PO ONE (18:24)
[2020-07-16] MEDS: ASCORBIC ACID 500 MG TABLET PO SCH (21:57)
[2020-07-17 06:34] LABS: Basophils % 0.2 % (0.0-0.8); Eosinophils # 0.5 10*3/uL (0.0-0.87); Eosinophils % 7.7 % (0.00-10.9); Hematocrit 41.4 VOL% (35.7-47.0); Hemoglobin 12.8 GM/DL (12.0-16.0); Immature Granulocytes % 0.7 %; Immature Granulocytes Absolute 0.04 #; Lymphocytes # 1.5 10*3/uL (1.4-4.0); Lymphocytes % 25.5 % (21.3-54.2); Mean Corpuscular HGB Conc 30.9 GM/DL (32-36); Mean Corpuscular Volume 94.5 FL (87-102); Mean Platelet Volume 13.2 FL (9.6-12.0); Monocytes % 15.4 % (1.7-12.7); Neutrophils % 50.5 % (38.7-73.9); Platelet Count 74 T/CUMM (130-400); Red Blood Count 4.38 MC/CUMM (3.8-5.5); Red Cell Distribution Width 14.2 % (9.3-17.3)
[2020-07-17 06:45] LABS: Calcium 8.1 MG/DL (8.5-10.1); Osmolality,Calculated 293.3 MOS/KG (273-304); Potassium 3.5 MMOL/L (3.5-5.1)
[2020-07-17 07:00] LABS: Platelet Estimate Decreased
[2020-07-17] MEDS: HEPARIN 5,000 UNIT/1 ML VIAL SUBCUT SCH ×2 (07:02→18:30)
[2020-07-17] MEDS: POTASSIUM CHLORIDE 20 MEQ/15 ML UDCUP PO SCH ×2 (08:35→21:41)
[2020-07-17] MEDS: CITALOPRAM 40 MG TABLET PO SCH (08:35)
[2020-07-17] MEDS: carvediloL 6.25 MG TABLET PO SCH ×2 (08:35→16:53)
[2020-07-17] MEDS: ASCORBIC ACID 500 MG TABLET PO SCH ×2 (08:35→21:41)
[2020-07-17] MEDS: ASPIRIN EC 81 MG TABLET PO SCH (08:36)
[2020-07-17] MEDS: PANTOPRAZOLE 40 MG TABLET PO SCH (08:36)
[2020-07-17] MEDS: cefTRIAXone 2,000 MG in SYRINGE 1 EACH IV SCH (08:38)
[2020-07-17] MEDS ORDERED: LACTULOSE 20 GM/30 ML UDCUP PO SCH (09:00)
[2020-07-17] MEDS ORDERED: POTASSIUM CHLORIDE 20 MEQ TABLET PO ONE (10:11)
[2020-07-17] MEDS ORDERED: MAGNESIUM SULF RIDER 2 GM in PREMIX 1 EACH IV ONE (10:12)
[2020-07-17] MEDS: DEXTROSE 5% 1,000 ML IV SCH ×2 (11:55)
[2020-07-18 04:14] LABS: Basophils % 0.1 % (0.0-0.8); Eosinophils # 0.3 10*3/uL (0.0-0.87); Eosinophils % 4.7 % (0.00-10.9); Hematocrit 42.9 VOL% (35.7-47.0); Hemoglobin 13.1 GM/DL (12.0-16.0); Immature Granulocytes % 0.9 %; Immature Granulocytes Absolute 0.06 #; Lymphocytes # 1.5 10*3/uL (1.4-4.0); Lymphocytes % 21.9 % (21.3-54.2); Mean Corpuscular HGB Conc 30.5 GM/DL (32-36); Mean Corpuscular Volume 93.9 FL (87-102); Mean Platelet Volume 13.3 FL (9.6-12.0); Monocytes % 19.1 % (1.7-12.7); Neutrophils % 53.3 % (38.7-73.9); Platelet Count 73 T/CUMM (130-400); Red Blood Count 4.57 MC/CUMM (3.8-5.5); Red Cell Distribution Width 13.9 % (9.3-17.3); White Blood Count 6.9 T/CUMM (4-12)
[2020-07-18 04:35] LABS: Atypical Lymphocytes Few; Eosinophils 4 % (0-10); Hypochromasia 1+; Lymphocytes 25 % (20-55); Microcytosis Slight; Segmented Neutrophils 57 % (50-85); Total Cells Counted 100
[2020-07-18 04:36] LABS: Albumin 2.3 G/DL (3.4-5.0); Bilirubin,Direct 0.32 MG/DL (0.0-0.20); Bilirubin,Indirect 1.4 MG/DL (0.0-1.0); Bilirubin,Total 1.7 MG/DL (0.2-1.0); Platelet Estimate Decreased; Total Protein 5.2 G/DL (5.0-7.5)
[2020-07-18 04:42] LABS: Osmolality,Calculated 279.7 MOS/KG (273-304); Potassium 4.7 MMOL/L (3.5-5.1)
[2020-07-18] MEDS: DEXTROSE 5% 1,000 ML IV SCH ×2 (06:29→21:10)
[2020-07-18] MEDS: HEPARIN 5,000 UNIT/1 ML VIAL SUBCUT SCH ×2 (06:44→17:41)
[2020-07-18] MEDS: carvediloL 6.25 MG TABLET PO SCH ×2 (08:47→17:40)
[2020-07-18] MEDS: ASPIRIN EC 81 MG TABLET PO SCH (08:47)
[2020-07-18] MEDS: CITALOPRAM 40 MG TABLET PO SCH (08:48)
[2020-07-18] MEDS: ASCORBIC ACID 500 MG TABLET PO SCH ×2 (08:48→21:09)
[2020-07-18] MEDS: PANTOPRAZOLE 40 MG TABLET PO SCH (08:48)
[2020-07-18] MEDS: POTASSIUM CHLORIDE 20 MEQ/15 ML UDCUP PO SCH (08:48)
[2020-07-18] MEDS: cefTRIAXone 2,000 MG in SYRINGE 1 EACH IV SCH (08:52)
[2020-07-18] MEDS ORDERED: IBUPROFEN 400 MG TABLET PO PRN (15:03)
[2020-07-19] MEDS: HEPARIN 5,000 UNIT/1 ML VIAL SUBCUT SCH (05:40)
[2020-07-19 06:07] LABS: Basophils % 0.3 % (0.0-0.8); Eosinophils # 0.2 10*3/uL (0.0-0.87); Eosinophils % 3.2 % (0.00-10.9); Hematocrit 40.9 VOL% (35.7-47.0); Hemoglobin 12.6 GM/DL (12.0-16.0); Immature Granulocytes % 0.7 %; Immature Granulocytes Absolute 0.04 #; Lymphocytes # 1.3 10*3/uL (1.4-4.0); Lymphocytes % 21.1 % (21.3-54.2); Mean Corpuscular HGB Conc 30.8 GM/DL (32-36); Mean Corpuscular Volume 92.3 FL (87-102); Mean Platelet Volume 12.6 FL (9.6-12.0); Monocytes % 17.4 % (1.7-12.7); Neutrophils % 57.3 % (38.7-73.9); Platelet Count 92 T/CUMM (130-400); Red Blood Count 4.43 MC/CUMM (3.8-5.5); Red Cell Distribution Width 13.8 % (9.3-17.3)
[2020-07-19 06:25] LABS: Lymphocytes 19 % (20-55); Platelet Estimate Decreased; Segmented Neutrophils 61 % (50-85); Total Cells Counted 100
[2020-07-19 06:26] LABS: Hypochromasia Slight; Microcytosis Slight
[2020-07-19 06:32] LABS: Calcium 8.3 MG/DL (8.5-10.1); Osmolality,Calculated 274.8 MOS/KG (273-304); Potassium 4.4 MMOL/L (3.5-5.1)
[2020-07-19] MEDS: PANTOPRAZOLE 40 MG TABLET PO SCH (08:36)
[2020-07-19] MEDS: carvediloL 6.25 MG TABLET PO SCH (08:36)
[2020-07-19] MEDS: CITALOPRAM 40 MG TABLET PO SCH (08:36)
[2020-07-19] MEDS: ASCORBIC ACID 500 MG TABLET PO SCH (08:36)
[2020-07-19] MEDS: ASPIRIN EC 81 MG TABLET PO SCH (08:36)
[2020-07-19 11:57] VITALS: BP 105/54
[2020-07-19] MEDS ORDERED: TUBERCULIN SKIN TEST 0.1 ML SYRINGE INTRADERM ONE (14:00)
== END 2020-07-19 14:55 | DRG 441 ==
LOC: EDBD → EDUNIT# → N.ED 15:04 → N.EDINP 21:53 → SUATTDRO 21:53 → N.EDINP 07-11 02:16 → N.5E 07-11 02:45
PROVIDERS: ADMIT Internal Medicine; ATTEND Hospitalist

== ENCOUNTER 2021-05-16 18:08 | Inpatient (IN) ==
[2021-05-16 18:50] LABS: Basophils # 0.1 10*3/uL (0.0-0.2); Basophils % 0.7 % (0.0-0.8); Eosinophils # 0.4 10*3/uL (0.0-0.87); Eosinophils % 5.8 % (0.00-10.9); Hematocrit 40.2 VOL% (35.7-47.0); Immature Granulocytes % 0.6 %; Immature Granulocytes Absolute 0.04 #; Lymphocytes # 0.5 10*3/uL (1.4-4.0); Mean Corpuscular HGB Conc 32.3 GM/DL (32-36); Mean Corpuscular Volume 89.9 FL (87-102); Mean Platelet Volume 9.9 FL (9.6-12.0); Monocytes % 10.9 % (1.7-12.7); Platelet Count 237 T/CUMM (130-400); Red Blood Count 4.47 MC/CUMM (3.8-5.5); Red Cell Distribution Width 12.1 % (9.3-17.3); White Blood Count 6.8 T/CUMM (4-12)
[2021-05-16 19:06] LABS: ABG Base Excess 1.4 MMOL/L (-2.5-2.5); ABG HCO3 24.7 MMOL/L (20-26); ABG Oxygen Saturation 98.8 % (95-100); ABG PCO2 34.9 MM HG (35-48); ABG PH 7.468 (7.35-7.45); ABG PO2 160.6 MM HG (80-95); ABG TCO2 25.8 MMOL/L (23-27)
[2021-05-16 19:08] LABS: Alanine Aminotransferase 24 U/L (13-56); Albumin 3.8 G/DL (3.4-5.0); Alkaline Phosphatase 65 U/L (45-117); Aspartate Amino Transferase 20 U/L (0-37); Bilirubin,Total < 0.39 MG/DL (0.20-1.00); Blood Urea Nitrogen 26 MG/DL (7-18); Carbon Dioxide 27 MMOL/L (21-32); Estimated Glom Filtration Rate 67 ML/MIN; Glucose 105 MG/DL (74-106); Osmolality,Calculated 274.1 MOS/KG (273-304); Potassium 4.6 MMOL/L (3.5-5.1); Sodium 135 MMOL/L (136-145)
[2021-05-16 20:04] LABS: PT Patient Result 11.4 SECS (10.5-12.0)
[2021-05-16] MEDS ORDERED: ACETAMINOPHEN 500 MG TABLET PO STA (21:42)
[2021-05-16] MEDS ORDERED: GLUCAGON 1 MG VIAL IM PRN (22:04)
[2021-05-16] MEDS ORDERED: ACETAMINOPHEN 325 MG TABLET PO PRN (22:06)
[2021-05-16] MEDS ORDERED: MAGNESIUM SULF RIDER 4 GM/100 ML PREMIX IV PRN (22:06)
[2021-05-16] MEDS ORDERED: MAGNESIUM SULF RIDER 2 GM/50 ML PREMIX IV PRN (22:06)
[2021-05-16] MEDS ORDERED: ONDANSETRON 4 MG/2 ML VIAL IV PRN (22:06)
[2021-05-16] MEDS ORDERED: POTASSIUM CHLORIDE RIDER 10 MEQ/100 ML PREMIX IV PRN (22:06)
[2021-05-16] MEDS ORDERED: DEXTROSE 50% 25 GM/50 ML SYRINGE IV PRN (22:18)
[2021-05-16 22:40] LABS: Bilirubin,Urine Negative (Negative); Blood, Urine Negative (Negative); Glucose,Urine (UA) Negative (Negative); Ketones,Urine Negative (Negative); Nitrite,Urine Negative (Negative); Protein,Urine Negative; RBC,Urine 1 /HPF (0-4); Squamous Epithelial Cell,Urine Occasional /HPF (0-10); Urine Appearance CLEAR (Clear); Urine Color Yellow (Yellow); Urine Specific Gravity 1.031 (1.001-1.035); Urine Urobilinogen < 2.0 EU/DL (<2.0)
[2021-05-16] MEDS: ENOXAPARIN 40 MG/0.4 ML SYRINGE SUBCUT SCH (22:48)
[2021-05-16] MEDS: carvediloL 6.25 MG TABLET PO SCH (22:48)
[2021-05-16] MEDS: BENZONATATE 100 MG CAPSULE PO SCH (22:48)
[2021-05-16] MEDS ORDERED: FUROSEMIDE 40 MG/4 ML VIAL IV ONE (23:30)
[2021-05-16 23:39] LABS: Barbiturates Screen,Urine Negative (Negative); Benzodiazepines Screen,Urine Negative (Negative); Cannabinoid Screen,Urine Negative (Negative); Opiate Screen,Urine Negative (Negative); Phencyclidine Screen,Urine Negative (Negative)
[2021-05-17] MEDS: ALBUTEROL 2.5 MG/3 ML NEB RESP TX SCH ×4 (00:30→19:35)
[2021-05-17 04:29] LABS: Basophils # 0.1 10*3/uL (0.0-0.2); Eosinophils # 0.2 10*3/uL (0.0-0.87); Hematocrit 37.9 VOL% (35.7-47.0); Hemoglobin 11.9 GM/DL (12.0-16.0); Immature Granulocytes % 0.4 %; Immature Granulocytes Absolute 0.02 #; Lymphocytes # 0.9 10*3/uL (1.4-4.0); Lymphocytes % 18.2 % (21.3-54.2); Mean Corpuscular HGB Conc 31.4 GM/DL (32-36); Mean Corpuscular Volume 93.3 FL (87-102); Mean Platelet Volume 10.7 FL (9.6-12.0); Monocytes % 19.5 % (1.7-12.7); Neutrophils % 56.9 % (38.7-73.9); Platelet Count 180 T/CUMM (130-400); Red Blood Count 4.06 MC/CUMM (3.8-5.5); Red Cell Distribution Width 12.1 % (9.3-17.3); White Blood Count 4.8 T/CUMM (4-12)
[2021-05-17 05:03] LABS: Eosinophils 5 % (0-10); Lymphocytes 21 % (20-55); Platelet Estimate Normal; Segmented Neutrophils 64 % (50-85); Total Cells Counted 100
[2021-05-17 05:20] LABS: Calcium 8.5 MG/DL (8.5-10.1); Osmolality,Calculated 270.2 MOS/KG (273-304); Potassium 4.6 MMOL/L (3.5-5.1); Risk Ratio 3.78; Thyroid Stimulating Hormone 1.67 uIU/ml (0.358-3.74); VLDL Cholesterol 18.6 MG/DL
[2021-05-17] MEDS: carvediloL 6.25 MG TABLET PO SCH ×2 (08:34→16:56)
[2021-05-17] MEDS: NON-FORMULARY MEDICATION (Fluticasone Furoate-Vilanterol [Breo Ellipta] 200-25 mcg/dose Bl INH SCH (08:35)
[2021-05-17] MEDS: BENZONATATE 100 MG CAPSULE PO SCH ×2 (09:38→20:06)
[2021-05-17] MEDS: DOCUSATE SODIUM 100 MG CAPSULE PO SCH ×2 (09:38→20:06)
[2021-05-17] MEDS: CITALOPRAM 20 MG TABLET PO SCH (09:38)
[2021-05-17] MEDS: LOSARTAN 25 MG TABLET PO SCH (09:38)
[2021-05-17] MEDS: PANTOPRAZOLE 40 MG TABLET PO SCH (09:38)
[2021-05-17] MEDS ORDERED: DEXTROSE 10% 250 ML BAG IV PRN (10:30)
[2021-05-17] MEDS: ASPIRIN EC 81 MG TABLET PO SCH (11:49)
[2021-05-17] MEDS: FUROSEMIDE 40 MG TABLET PO SCH ×2 (11:49→16:56)
[2021-05-17] MEDS: ENOXAPARIN 40 MG/0.4 ML SYRINGE SUBCUT SCH (23:29)
[2021-05-18] MEDS: ALBUTEROL 2.5 MG/3 ML NEB RESP TX SCH ×4 (01:54→19:27)
[2021-05-18 05:42] LABS: Basophils % 0.7 % (0.0-0.8); Eosinophils # 0.1 10*3/uL (0.0-0.87); Eosinophils % 2.5 % (0.00-10.9); Hematocrit 39.9 VOL% (35.7-47.0); Hemoglobin 12.9 GM/DL (12.0-16.0); Immature Granulocytes % 0.2 %; Immature Granulocytes Absolute 0.01 #; Lymphocytes # 1.7 10*3/uL (1.4-4.0); Mean Corpuscular HGB Conc 32.3 GM/DL (32-36); Mean Corpuscular Volume 90.9 FL (87-102); Mean Platelet Volume 10.2 FL (9.6-12.0); Monocytes % 18.8 % (1.7-12.7); Neutrophils % 39.8 % (38.7-73.9); Platelet Count 214 T/CUMM (130-400); Red Blood Count 4.39 MC/CUMM (3.8-5.5); Red Cell Distribution Width 12.2 % (9.3-17.3); White Blood Count 4.4 T/CUMM (4-12)
[2021-05-18 06:41] LABS: Platelet Estimate Normal
[2021-05-18 06:48] LABS: Calcium 8.6 MG/DL (8.5-10.1); Osmolality,Calculated 271.1 MOS/KG (273-304); Potassium 3.6 MMOL/L (3.5-5.1)
[2021-05-18] MEDS: NON-FORMULARY MEDICATION (Fluticasone Furoate-Vilanterol [Breo Ellipta] 200-25 mcg/dose Bl INH SCH (07:31)
[2021-05-18 08:03] LABS: Segmented Neutrophils 29 % (50-85); Total Cells Counted 100
[2021-05-18 08:04] LABS: Band Neutrophils 11 % (0-10); Eosinophils 4 % (0-10); Lymphocytes 39 % (20-55)
[2021-05-18 08:05] LABS: Burr Cells Few
[2021-05-18] MEDS: ASPIRIN EC 81 MG TABLET PO SCH (09:37)
[2021-05-18] MEDS: PANTOPRAZOLE 40 MG TABLET PO SCH (09:37)
[2021-05-18] MEDS: POTASSIUM CHLORIDE 20 MEQ TABLET PO PRN ×2 (09:37→18:50)
[2021-05-18] MEDS: DOCUSATE SODIUM 100 MG CAPSULE PO SCH ×2 (09:37→20:35)
[2021-05-18] MEDS: LOSARTAN 25 MG TABLET PO SCH (09:37)
[2021-05-18] MEDS: CITALOPRAM 20 MG TABLET PO SCH (09:37)
[2021-05-18] MEDS: carvediloL 6.25 MG TABLET PO SCH ×2 (09:37→16:22)
[2021-05-18] MEDS: FUROSEMIDE 40 MG TABLET PO SCH (09:37)
[2021-05-18] MEDS: BENZONATATE 100 MG CAPSULE PO SCH ×2 (09:38→20:35)
[2021-05-19] MEDS: ENOXAPARIN 40 MG/0.4 ML SYRINGE SUBCUT SCH ×2 (00:12→21:31)
[2021-05-19] MEDS: ALBUTEROL 2.5 MG/3 ML NEB RESP TX SCH ×4 (01:20→20:43)
[2021-05-19] MEDS: NON-FORMULARY MEDICATION (Fluticasone Furoate-Vilanterol [Breo Ellipta] 200-25 mcg/dose Bl INH SCH (05:54)
[2021-05-19 08:57] LABS: Basophils % 0.7 % (0.0-0.8); Eosinophils # 0.2 10*3/uL (0.0-0.87); Eosinophils % 5.4 % (0.00-10.9); Hematocrit 41.5 VOL% (35.7-47.0); Hemoglobin 13.6 GM/DL (12.0-16.0); Immature Granulocytes % 0.2 %; Immature Granulocytes Absolute 0.01 #; Lymphocytes # 1.6 10*3/uL (1.4-4.0); Mean Corpuscular HGB Conc 32.8 GM/DL (32-36); Mean Corpuscular Volume 89.2 FL (87-102); Mean Platelet Volume 10.4 FL (9.6-12.0); Monocytes % 13.5 % (1.7-12.7); Neutrophils % 42.2 % (38.7-73.9); Platelet Count 232 T/CUMM (130-400); Red Blood Count 4.65 MC/CUMM (3.8-5.5); Red Cell Distribution Width 12.4 % (9.3-17.3); White Blood Count 4.1 T/CUMM (4-12)
[2021-05-19] MEDS: LOSARTAN 25 MG TABLET PO SCH (09:08)
[2021-05-19] MEDS: carvediloL 6.25 MG TABLET PO SCH ×2 (09:08→17:42)
[2021-05-19] MEDS: CITALOPRAM 20 MG TABLET PO SCH (09:08)
[2021-05-19] MEDS: PANTOPRAZOLE 40 MG TABLET PO SCH (09:08)
[2021-05-19] MEDS: FUROSEMIDE 40 MG TABLET PO SCH (09:08)
[2021-05-19] MEDS: ASPIRIN EC 81 MG TABLET PO SCH (09:08)
[2021-05-19] MEDS: BENZONATATE 100 MG CAPSULE PO SCH ×2 (09:09→21:31)
[2021-05-19] MEDS: DOCUSATE SODIUM 100 MG CAPSULE PO SCH ×2 (09:09→21:30)
[2021-05-19 09:21] LABS: Calcium 8.7 MG/DL (8.5-10.1); Potassium 3.8 MMOL/L (3.5-5.1)
[2021-05-19 09:26] LABS: Band Neutrophils 8 % (0-10); Eosinophils 7 % (0-10); Lymphocytes 36 % (20-55); Platelet Estimate Normal; Segmented Neutrophils 36 % (50-85); Total Cells Counted 100
[2021-05-20] MEDS: ALBUTEROL 2.5 MG/3 ML NEB RESP TX SCH ×4 (01:53→19:30)
[2021-05-20 06:39] LABS: Basophils % 0.6 % (0.0-0.8); Eosinophils # 0.4 10*3/uL (0.0-0.87); Eosinophils % 7.1 % (0.00-10.9); Hematocrit 42.5 VOL% (35.7-47.0); Hemoglobin 13.8 GM/DL (12.0-16.0); Immature Granulocytes % 0.2 %; Immature Granulocytes Absolute 0.01 #; Lymphocytes # 2.1 10*3/uL (1.4-4.0); Lymphocytes % 43.1 % (21.3-54.2); Mean Corpuscular HGB Conc 32.5 GM/DL (32-36); Mean Corpuscular Volume 89.5 FL (87-102); Mean Platelet Volume 10.8 FL (9.6-12.0); Monocytes % 10.3 % (1.7-12.7); Neutrophils % 38.7 % (38.7-73.9); Platelet Count 261 T/CUMM (130-400); Red Blood Count 4.75 MC/CUMM (3.8-5.5); Red Cell Distribution Width 12.2 % (9.3-17.3)
[2021-05-20 07:07] LABS: Calcium 8.7 MG/DL (8.5-10.1); Osmolality,Calculated 278.7 MOS/KG (273-304); Potassium 3.5 MMOL/L (3.5-5.1)
[2021-05-20] MEDS: NON-FORMULARY MEDICATION (Fluticasone Furoate-Vilanterol [Breo Ellipta] 200-25 mcg/dose Bl INH SCH (07:51)
[2021-05-20] MEDS: CITALOPRAM 20 MG TABLET PO SCH (10:10)
[2021-05-20] MEDS: PANTOPRAZOLE 40 MG TABLET PO SCH (10:11)
[2021-05-20] MEDS: ASPIRIN EC 81 MG TABLET PO SCH (10:11)
[2021-05-20] MEDS: BENZONATATE 100 MG CAPSULE PO SCH ×2 (10:11→20:32)
[2021-05-20] MEDS: LOSARTAN 25 MG TABLET PO SCH (10:11)
[2021-05-20] MEDS: FUROSEMIDE 40 MG TABLET PO SCH (10:11)
[2021-05-20] MEDS: DOCUSATE SODIUM 100 MG CAPSULE PO SCH ×2 (10:11→20:32)
[2021-05-20] MEDS: carvediloL 6.25 MG TABLET PO SCH ×2 (10:11→17:45)
[2021-05-20] MEDS: ENOXAPARIN 40 MG/0.4 ML SYRINGE SUBCUT SCH (21:37)
[2021-05-21] MEDS: ALBUTEROL 2.5 MG/3 ML NEB RESP TX SCH ×3 (00:39→13:56)
[2021-05-21] MEDS: NON-FORMULARY MEDICATION (Fluticasone Furoate-Vilanterol [Breo Ellipta] 200-25 mcg/dose Bl INH SCH (06:14)
[2021-05-21 06:27] LABS: Potassium 4.1 MMOL/L (3.5-5.1)
[2021-05-21] MEDS: CITALOPRAM 20 MG TABLET PO SCH (09:31)
[2021-05-21] MEDS: PANTOPRAZOLE 40 MG TABLET PO SCH (09:31)
[2021-05-21] MEDS: LOSARTAN 25 MG TABLET PO SCH (09:31)
[2021-05-21] MEDS: DOCUSATE SODIUM 100 MG CAPSULE PO SCH (09:31)
[2021-05-21] MEDS: BENZONATATE 100 MG CAPSULE PO SCH (09:32)
[2021-05-21] MEDS: FUROSEMIDE 40 MG TABLET PO SCH (09:32)
[2021-05-21] MEDS: ASPIRIN EC 81 MG TABLET PO SCH (09:32)
[2021-05-21] MEDS: carvediloL 6.25 MG TABLET PO SCH (09:32)
[2021-05-21 15:56] VITALS: BP 116/64
== END 2021-05-21 16:52 | disposition home health service (06) | DRG 948 ==
LOC: N.ED 18:08 → N.EDINP 18:08 → SUATTDRO 21:01 → N.3E 05-17 10:06 → SUATTDRO 05-18 13:46
PROVIDERS: ADMIT Internal Medicine; ATTEND Internal Medicine

== ENCOUNTER 2022-03-17 11:46 | Inpatient (IN) ==
[2022-03-17 11:36] LABS: Basophils # 0.1 10*3/uL (0.0-0.2); Basophils % 0.8 % (0.0-0.8); Eosinophils # 0.4 10*3/uL (0.0-0.87); Eosinophils % 4.7 % (0.00-10.9); Hematocrit 37.1 VOL% (35.7-47.0); Hemoglobin 12.2 GM/DL (12.0-16.0); Immature Granulocytes % 0.5 %; Immature Granulocytes Absolute 0.04 #; Lymphocytes # 1.7 10*3/uL (1.4-4.0); Lymphocytes % 20.3 % (21.3-54.2); Mean Corpuscular HGB Conc 32.9 GM/DL (32-36); Mean Corpuscular Volume 89.2 FL (87-102); Mean Platelet Volume 10.7 FL (9.6-12.0); Monocytes # 0.6 10*3/uL (0.11-0.8); Neutrophils % 66.7 % (38.7-73.9); Platelet Count 258 T/CUMM (130-400); Red Blood Count 4.16 MC/CUMM (3.8-5.5); Red Cell Distribution Width 12.6 % (9.3-17.3); White Blood Count 8.5 T/CUMM (4-12)
[~2022-03-17 11:46] MED LIST: ASPIRIN 325 MG TABLET PO STA; NITROGLYCERIN SL 0.4 MG TABLET SL PRN
[2022-03-17 11:57] LABS: INR 1.1; PT Patient Result 11.6 SECS (10.1-12.1); Partial Thromboplastin Time 23.7 SECS (23.7-32.9)
[2022-03-17 12:00] LABS: Calcium 8.8 MG/DL (8.5-10.1); Osmolality,Calculated 279.8 MOS/KG (273-304); Potassium 4.3 MMOL/L (3.5-5.1)
[2022-03-17] MEDS ORDERED: POTASSIUM CHLORIDE 20 MEQ TABLET PO PRN (13:25)
[2022-03-17] MEDS ORDERED: MAGNESIUM SULF RIDER 4 GM/100 ML PREMIX IV PRN (13:25)
[2022-03-17] MEDS ORDERED: MORPHINE 2 MG/1 ML SYRINGE IV PRN (13:25)
[2022-03-17] MEDS ORDERED: ONDANSETRON 4 MG/2 ML VIAL IV PRN (13:25)
[2022-03-17] MEDS ORDERED: MAGNESIUM SULF RIDER 2 GM/50 ML PREMIX IV PRN (13:25)
[2022-03-17] MEDS: SODIUM CHLORIDE 0.45% 1,000 ML IV SCH (13:49)
[2022-03-17] MEDS: ENOXAPARIN 80 MG/0.8 ML SYRINGE SUBCUT SCH (15:18)
[2022-03-17] MEDS: carvediloL 6.25 MG TABLET PO SCH (17:31)
[2022-03-17] MEDS: BENZONATATE 100 MG CAPSULE PO SCH (21:03)
[2022-03-18] MEDS: ENOXAPARIN 80 MG/0.8 ML SYRINGE SUBCUT SCH (02:06)
[2022-03-18] MEDS: SODIUM CHLORIDE 0.45% 1,000 ML IV SCH (05:00)
[2022-03-18 07:55] LABS: Basophils # 0.1 10*3/uL (0.0-0.2); Basophils % 1.2 % (0.0-0.8); Eosinophils # 0.4 10*3/uL (0.0-0.87); Eosinophils % 5.9 % (0.00-10.9); Hematocrit 39.5 VOL% (35.7-47.0); Hemoglobin 12.5 GM/DL (12.0-16.0); Immature Granulocytes % 0.3 %; Immature Granulocytes Absolute 0.02 #; Lymphocytes # 2.2 10*3/uL (1.4-4.0); Lymphocytes % 29.6 % (21.3-54.2); Mean Corpuscular HGB Conc 31.6 GM/DL (32-36); Mean Corpuscular Volume 91.4 FL (87-102); Mean Platelet Volume 11.1 FL (9.6-12.0); Monocytes # 0.6 10*3/uL (0.11-0.8); Monocytes % 8.5 % (1.7-12.7); Neutrophils % 54.5 % (38.7-73.9); Platelet Count 226 T/CUMM (130-400); Red Blood Count 4.32 MC/CUMM (3.8-5.5); Red Cell Distribution Width 12.6 % (9.3-17.3); White Blood Count 7.3 T/CUMM (4-12)
[2022-03-18] MEDS ORDERED: methylPREDNISolone SOD SUC 125 MG/2 ML VIAL IV SCH (08:30)
[2022-03-18] MEDS ORDERED: FAMOTIDINE 20 MG/2 ML VIAL IV SCH (08:30)
[2022-03-18 08:38] LABS: Calcium 8.7 MG/DL (8.5-10.1); Osmolality,Calculated 267.5 MOS/KG (273-304); Potassium 4.5 MMOL/L (3.5-5.1)
[2022-03-18] MEDS: BENZONATATE 100 MG CAPSULE PO SCH (08:59)
[2022-03-18] MEDS ORDERED: FUROSEMIDE 40 MG TABLET PO SCH (09:00)
[2022-03-18] MEDS ORDERED: LOSARTAN 25 MG TABLET PO SCH (09:00)
[2022-03-18] MEDS ORDERED: PANTOPRAZOLE 40 MG TABLET PO SCH (09:00)
[2022-03-18] MEDS ORDERED: POTASSIUM CHLORIDE 10 MEQ TABLET PO SCH (09:00)
[2022-03-18] MEDS: carvediloL 6.25 MG TABLET PO SCH ×2 (09:00→16:08)
[2022-03-18] MEDS: SODIUM CHLORIDE 0.9% 1,000 ML IV SCH ×2 (09:05→16:08)
[2022-03-18] MEDS ORDERED: diphenhydrAMINE CAP 50 MG CAPSULE PO ONE (11:00)
[2022-03-18] MEDS ORDERED: DIAZEPAM 5 MG TABLET PO ONE (11:00)
[2022-03-18] MEDS ORDERED: MIDAZOLAM 2 MG/2 ML VIAL ONE (11:07)
[2022-03-18] MEDS ORDERED: fentaNYL 100 MCG/2 ML VIAL ONE (11:07)
[2022-03-18 11:20] LABS: Risk Ratio 3.88; VLDL Cholesterol 23.8 MG/DL
[2022-03-18] MEDS ORDERED: ENOXAPARIN 80 MG/0.8 ML SYRINGE SUBCUT ONE (13:00)
[2022-03-18 18:17] VITALS: BP 91/57
[2022-03-19] MEDS ORDERED: ROSUVASTATIN 20 MG TABLET PO SCH (09:00)
[2022-03-19] MEDS ORDERED: ASPIRIN EC 81 MG TABLET PO SCH (09:00)
== END 2022-03-18 19:15 | disposition hospice, home (50) | DRG 287 ==
LOC: N.ED 11:46 → N.EDINP 13:25 → N.TELES 13:51
PROVIDERS: ADMIT Family Medicine; ATTEND Family Medicine

== ENCOUNTER 2022-05-27 13:23 | Observation (INO) ==
[2022-05-27 14:11] LABS: Basophils # 0.1 10*3/uL (0.0-0.2); Basophils % 0.6 % (0.0-0.8); Eosinophils # 0.2 10*3/uL (0.0-0.87); Eosinophils % 1.7 % (0.00-10.9); Hematocrit 38.8 VOL% (35.7-47.0); Hemoglobin 12.9 GM/DL (12.0-16.0); Immature Granulocytes % 0.7 %; Immature Granulocytes Absolute 0.08 #; Lymphocytes # 1.4 10*3/uL (1.4-4.0); Lymphocytes % 12.8 % (21.3-54.2); Mean Corpuscular HGB Conc 33.2 GM/DL (32-36); Mean Platelet Volume 10.5 FL (9.6-12.0); Monocytes # 0.8 10*3/uL (0.11-0.8); Monocytes % 7.6 % (1.7-12.7); Neutrophils % 76.6 % (38.7-73.9); Platelet Count 229 T/CUMM (130-400); Red Blood Count 4.36 MC/CUMM (3.8-5.5); Red Cell Distribution Width 13.4 % (9.3-17.3)
[2022-05-27 14:20] LABS: PT Patient Result 11.1 SECS (10.1-12.1); Partial Thromboplastin Time 24.8 SECS (23.7-32.9)
[2022-05-27 14:30] LABS: Albumin 4.7 G/DL (3.4-5.0); Bilirubin,Total 0.6 MG/DL (0.20-1.00); Calcium 9.8 MG/DL (8.5-10.1); Osmolality,Calculated 287.7 MOS/KG (273-304); Potassium 4.7 MMOL/L (3.5-5.1); Total Protein 7.9 G/DL (6.4-8.2)
[2022-05-27] MEDS ORDERED: ONDANSETRON 4 MG/2 ML VIAL IV PRN (15:41)
[2022-05-27] MEDS: SODIUM CHLORIDE 0.9% 1,000 ML IV SCH (16:04)
[2022-05-27] MEDS: ACETAMINOPHEN 325 MG TABLET PO PRN ×2 (16:05→21:47)
[2022-05-27 17:57] LABS: Bilirubin,Urine Negative (Negative); Blood, Urine Negative (Negative); Glucose,Urine (UA) 500 mg/dL (Negative); Ketones,Urine Negative (Negative); Nitrite,Urine Negative (Negative); Protein,Urine Negative (Negative); Urine Appearance Clear (Clear); Urine Color Yellow (Yellow); Urine Urobilinogen 0.2 eU/dL (<2.0); Urine pH 5.5 (4.5-8.0)
[2022-05-27 18:00] LABS: RBC,Urine <1 /HPF (0-4)
[2022-05-27] MEDS: DOCUSATE SODIUM 100 MG CAPSULE PO SCH (21:47)
[2022-05-28] MEDS: SODIUM CHLORIDE 0.9% 1,000 ML IV SCH ×3 (00:11→19:37)
[2022-05-28] MEDS: PANTOPRAZOLE 40 MG TABLET PO SCH (08:41)
[2022-05-28] MEDS: DOCUSATE SODIUM 100 MG CAPSULE PO SCH ×2 (08:41→20:43)
[2022-05-28] MEDS ORDERED: CLOPIDOGREL 75 MG TABLET PO ONE (09:28)
[2022-05-28] MEDS: carvediloL 3.125 MG TABLET PO SCH (20:43)
[2022-05-29 04:40] LABS: Basophils % 0.7 % (0.0-0.8); Eosinophils # 0.3 10*3/uL (0.0-0.87); Eosinophils % 5.2 % (0.00-10.9); Hematocrit 32.8 VOL% (35.7-47.0); Hemoglobin 10.3 GM/DL (12.0-16.0); Immature Granulocytes % 0.2 %; Immature Granulocytes Absolute 0.01 #; Lymphocytes # 1.2 10*3/uL (1.4-4.0); Lymphocytes % 22.3 % (21.3-54.2); Mean Corpuscular HGB Conc 31.4 GM/DL (32-36); Mean Corpuscular Volume 93.7 FL (87-102); Mean Platelet Volume 10.3 FL (9.6-12.0); Monocytes # 0.6 10*3/uL (0.11-0.8); Monocytes % 11.2 % (1.7-12.7); Neutrophils % 60.4 % (38.7-73.9); Platelet Count 161 T/CUMM (130-400); Red Cell Distribution Width 13.5 % (9.3-17.3); White Blood Count 5.4 T/CUMM (4-12)
[2022-05-29 05:06] LABS: Alanine Aminotransferase 15 U/L (13-56); Albumin 3.3 G/DL (3.4-5.0); Alkaline Phosphatase 43 U/L (45-117); Aspartate Amino Transferase 11 U/L (0-37); Bilirubin,Total < 0.39 MG/DL (0.20-1.00); Blood Urea Nitrogen 16 MG/DL (7-18); Calcium 8.1 MG/DL (8.5-10.1); Carbon Dioxide 27 MMOL/L (21-32); Chloride 113 MMOL/L (98-107); Glucose 114 MG/DL (74-106); Osmolality,Calculated 287.8 MOS/KG (273-304); Potassium 4.1 MMOL/L (3.5-5.1); Sodium 144 MMOL/L (136-145)
[2022-05-29] MEDS ORDERED: MAGNESIUM SULF RIDER 2 GM/50 ML PREMIX IV ONE (08:29)
[2022-05-29] MEDS: carvediloL 3.125 MG TABLET PO SCH (08:33)
[2022-05-29] MEDS: DOCUSATE SODIUM 100 MG CAPSULE PO SCH (08:34)
[2022-05-29] MEDS: PANTOPRAZOLE 40 MG TABLET PO SCH (08:34)
[2022-05-29] MEDS ORDERED: ROSUVASTATIN 20 MG TABLET PO SCH (09:00)
[2022-05-29] MEDS ORDERED: lisinopriL 2.5 MG TABLET PO SCH (09:00)
[2022-05-29] MEDS ORDERED: SPIRONOLACTONE 25 MG TABLET PO SCH (09:00)
[2022-05-29] MEDS ORDERED: DAPAGLIFLOZIN 10 MG TABLET PO SCH (09:00)
[2022-05-29] MEDS ORDERED: ASPIRIN EC 81 MG TABLET PO SCH (09:00)
[2022-05-29] MEDS ORDERED: CLOPIDOGREL 75 MG TABLET PO SCH (09:00)
[2022-05-29 12:15] VITALS: BP 129/71
== END 2022-05-29 14:17 | disposition home health service (06) ==
LOC: N.EDINP 13:23 → N.ED 13:23 → N.TELEN 17:14
PROVIDERS: ADMIT Family Medicine; ATTEND Family Medicine